=== PATIENT | female | born 1950 | race Native Hawaiian/Other Pacific Islander ===

== ENCOUNTER 2017-05-27 09:11 | Outpatient (CLI) | payer OTHER | END 2017-05-27 19:59 | disposition home or self-care (01) | LOC: RESP 09:11 → MAMMO 10:00 → RESP 19:59 | DX: Z12.31 Encounter for screening mammogram for malignant neoplasm of breast (principal); R60.0 Localized edema; Z13.820 Encounter for screening for osteoporosis | CPT/HCPCS: 93306 ==

== ENCOUNTER 2017-10-23 07:46 | Outpatient (CLI) | payer OTHER ==
[~2017-10-23] VITALS: Ht 30.5 cm; Wt 0.5 kg
== END 2017-10-23 19:39 | disposition home or self-care (01) ==
LOC: NM 07:46
DX: R07.89 Other chest pain (principal)
CPT/HCPCS: A9500; J2785

== ENCOUNTER 2018-04-07 14:01 | Emergency (ER) | payer OTHER ==
[~2018-04-07] VITALS: Ht 147.3 cm; Wt 127.0 kg
[2018-04-07] MEDS ORDERED: ASPIR-LOW81 MG PO (15:00)
[2018-04-07] MEDS ORDERED: CELEBREX200 MG PO (15:01)
[2018-04-07] MEDS ORDERED: FURO20TA67 PO (15:02)
[2018-04-07] MEDS ORDERED: PERCOCET1 TA3 PO (15:03)
[2018-04-07] MEDS ORDERED: KLOR-CON M2020 MEQ PO (15:04)
[2018-04-07] MEDS ORDERED: LEVO0.0218 PO (15:04)
[2018-04-07] MEDS ORDERED: ENDUR-ACIN500 MG PO (15:05)
[2018-04-07] MEDS ORDERED: LYRICA150 MG PO (15:05)
[2018-04-07] MEDS ORDERED: OMEPRAZOLE20 M1 PO (15:06)
[2018-04-07 15:15] LABS: POTASSIUM 4.2 mmol/L (3.6-5.2)
[2018-04-07 15:21] LABS: PLATELET COUNT 394 K/uL (152-353)
[2018-04-07 15:29] LABS: PARTIAL THROMBOPLASTIN TIME 24.9 SECONDS (24.5-33.6)
[2018-04-07 17:03] VITALS: BP 158/52; TEMP 98.1
== END 2018-04-07 17:03 | disposition home or self-care (01) ==
LOC: ED 14:01
PROVIDERS: Family Medicine
DX: L03.115 Cellulitis of right lower limb (principal); Z96.651 Presence of right artificial knee joint; M79.604 Pain in right leg
CPT/HCPCS: 80053; 85027; 85610; 85651; 85730; 99283

== ENCOUNTER 2018-04-12 12:55 | Emergency (ER) | payer OTHER ==
[~2018-04-12] VITALS: Ht 147.3 cm; Wt 127.0 kg
[~2018-04-12 12:55] MED LIST: ASPIR-LOW81 MG PO; CELEBREX200 MG PO; ENDUR-ACIN500 MG PO; FURO20TA67 PO; KLOR-CON M2020 MEQ PO; LEVO0.0218 PO; LYRICA150 MG PO; OMEPRAZOLE20 M1 PO; PERCOCET1 TA3 PO
[2018-04-12 13:58] LABS: PLATELET COUNT 285 K/uL (152-353)
[2018-04-12 14:09] LABS: POTASSIUM 4.2 mmol/L (3.6-5.2)
[2018-04-12 16:36] VITALS: BP 146/63; TEMP 98.2
== END 2018-04-12 17:00 | disposition home or self-care (01) ==
LOC: ED 12:55
PROVIDERS: Family Medicine
PROC: 0JQN0ZZ Repair Right Lower Leg Subcutaneous Tissue and Fascia, Open Approach (ICD-10-PCS; principal; 2018-04-12)
DX: T81.31XA Disruption of external operation (surgical) wound, not elsewhere classified, initial encounter (principal)
CPT/HCPCS: 80053; 85027; 96372; 99283; J7040

== ENCOUNTER 2018-04-28 12:06 | Outpatient (CLI) | payer OTHER ==
[~2018-04-28] VITALS: Ht 147.3 cm; Wt 127.9 kg
[2018-04-28 12:15] VITALS: BP 163/82; TEMP 97.7
== END 2018-04-28 12:53 | disposition home or self-care (01) ==
LOC: INF 12:06
DX: T84.53XA Infection and inflammatory reaction due to internal right knee prosthesis, initial encounter (principal)
CPT/HCPCS: 96365; 96375; J0696

== ENCOUNTER 2018-04-29 10:19 | Outpatient (CLI) | payer OTHER ==
[~2018-04-29] VITALS: Ht 147.3 cm; Wt 127.9 kg
[2018-04-29 10:40] VITALS: BP 147/49; TEMP 98
== END 2018-04-29 11:20 | disposition home or self-care (01) ==
LOC: INF 10:19
DX: T84.53XA Infection and inflammatory reaction due to internal right knee prosthesis, initial encounter (principal)
CPT/HCPCS: 96365; 96375; J0696

== ENCOUNTER 2018-04-30 09:30 | Outpatient (CLI) | payer OTHER ==
[~2018-04-30] VITALS: Ht 147.3 cm; Wt 127.9 kg
[2018-04-30 11:20] VITALS: BP 149/50; TEMP 98.1
== END 2018-04-30 12:50 | disposition home or self-care (01) ==
LOC: INF 09:30
DX: T84.53XA Infection and inflammatory reaction due to internal right knee prosthesis, initial encounter (principal)
CPT/HCPCS: 96365; 96375; 99211; J0696

== ENCOUNTER 2018-05-01 10:23 | Outpatient (CLI) | payer OTHER ==
[~2018-05-01] VITALS: Ht 147.3 cm; Wt 127.9 kg
[2018-05-01 11:05] VITALS: BP 139/51; TEMP 97.9
== END 2018-05-01 12:10 | disposition home or self-care (01) ==
LOC: INF 10:23
DX: T84.53XA Infection and inflammatory reaction due to internal right knee prosthesis, initial encounter (principal)
CPT/HCPCS: 96365; 96375; J0696

== ENCOUNTER 2018-05-02 10:57 | Outpatient (CLI) | payer OTHER ==
[~2018-05-02] VITALS: Ht 147.3 cm; Wt 127.9 kg
== END 2018-05-02 12:40 | disposition home or self-care (01) ==
LOC: INF 10:57
DX: T84.53XA Infection and inflammatory reaction due to internal right knee prosthesis, initial encounter (principal)
CPT/HCPCS: 96365; 96375; J0696; J1642

== ENCOUNTER 2018-05-03 12:57 | Outpatient (CLI) | payer OTHER | END 2018-05-03 14:00 | disposition home or self-care (01) | LOC: INF 12:57 | DX: T84.53XA Infection and inflammatory reaction due to internal right knee prosthesis, initial encounter (principal) | CPT/HCPCS: 96365; 96375; J0696; J1642 ==

== ENCOUNTER 2018-05-04 11:04 | Outpatient (CLI) | payer OTHER ==
[~2018-05-04] VITALS: Ht 147.3 cm; Wt 127.9 kg
[2018-05-04 11:10] VITALS: BP 131/45; TEMP 97.6
== END 2018-05-04 12:00 | disposition home or self-care (01) ==
LOC: INF 11:04
DX: T84.53XA Infection and inflammatory reaction due to internal right knee prosthesis, initial encounter (principal)
CPT/HCPCS: 96365; 96374; J0696

== ENCOUNTER 2018-05-05 10:55 | Outpatient (CLI) | payer OTHER ==
[~2018-05-05] VITALS: Ht 149.9 cm; Wt 127.9 kg
[2018-05-05 11:15] VITALS: BP 122/77; TEMP 98.1
== END 2018-05-05 12:04 | disposition home or self-care (01) ==
LOC: INF 10:55
DX: T84.53XA Infection and inflammatory reaction due to internal right knee prosthesis, initial encounter (principal)
CPT/HCPCS: 96365; 96375; J0696

== ENCOUNTER 2018-05-06 09:50 | Outpatient (CLI) | payer OTHER ==
[~2018-05-06] VITALS: Ht 147.3 cm; Wt 127.9 kg
[2018-05-06 10:50] VITALS: BP 131/58; TEMP 97.7
== END 2018-05-06 11:59 | disposition home or self-care (01) ==
LOC: INF 09:50
DX: T84.53XA Infection and inflammatory reaction due to internal right knee prosthesis, initial encounter (principal)
CPT/HCPCS: 96365; 96375; J0696

== ENCOUNTER 2018-05-07 07:57 | Outpatient (CLI) | payer OTHER ==
[~2018-05-07] VITALS: Ht 147.3 cm; Wt 127.9 kg
[2018-05-07 10:05] VITALS: BP 162/50; TEMP 98.2
== END 2018-05-07 11:22 | disposition home or self-care (01) ==
LOC: INF 07:57
DX: T84.53XA Infection and inflammatory reaction due to internal right knee prosthesis, initial encounter (principal)
CPT/HCPCS: 96365; 96375; J0696

== ENCOUNTER 2018-05-08 09:47 | Outpatient (CLI) | payer OTHER ==
[~2018-05-08] VITALS: Ht 147.3 cm; Wt 127.9 kg
[2018-05-08 11:08] VITALS: BP 144/64; TEMP 98.2
== END 2018-05-08 12:06 | disposition home or self-care (01) ==
LOC: INF 09:47
DX: T84.53XA Infection and inflammatory reaction due to internal right knee prosthesis, initial encounter (principal)
CPT/HCPCS: 96365; 96375; J0696

== ENCOUNTER 2018-05-09 11:24 | Outpatient (CLI) | payer OTHER | END 2018-05-09 12:15 | disposition home or self-care (01) | LOC: INF 11:24 | DX: T84.53XA Infection and inflammatory reaction due to internal right knee prosthesis, initial encounter (principal) | CPT/HCPCS: 96365; 96375; J0696 ==

== ENCOUNTER 2018-05-10 12:46 | Outpatient (CLI) | payer OTHER | END 2018-05-10 13:45 | disposition home or self-care (01) | LOC: INF 12:46 | DX: L08.9 Local infection of the skin and subcutaneous tissue, unspecified (principal) | CPT/HCPCS: 96365; 96375 ==

== ENCOUNTER 2018-06-30 12:05 | Outpatient (CLI) | payer OTHER | END 2018-06-30 19:24 | disposition home or self-care (01) | LOC: RAD 12:05 | DX: M13.851 Other specified arthritis, right hip (principal); M43.16 Spondylolisthesis, lumbar region ==

== ENCOUNTER 2018-09-01 09:23 | Day surgery (SDC) | payer OTHER ==
[~2018-09-01] VITALS: Ht 30.5 cm; Wt 0.5 kg
== END 2018-09-01 10:35 | disposition home or self-care (01) ==
LOC: OR 09:23
PROC: 3E0R33Z Introduction of Anti-inflammatory into Spinal Canal, Percutaneous Approach (ICD-10-PCS; principal; 2018-09-01)
PROC: B01BYZZ Fluoroscopy of Spinal Cord using Other Contrast (ICD-10-PCS; 2018-09-01)
DX: M51.16 Intervertebral disc disorders with radiculopathy, lumbar region (principal)
CPT/HCPCS: J1020

== ENCOUNTER 2018-09-29 12:13 | Day surgery (SDC) | payer OTHER | END 2018-09-29 15:15 | disposition home or self-care (01) | LOC: OR 12:13 | PROC: 3E0R33Z Introduction of Anti-inflammatory into Spinal Canal, Percutaneous Approach (ICD-10-PCS; principal; 2018-09-29) | PROC: B01BYZZ Fluoroscopy of Spinal Cord using Other Contrast (ICD-10-PCS; 2018-09-29) | DX: M51.16 Intervertebral disc disorders with radiculopathy, lumbar region (principal) | CPT/HCPCS: J1020 ==

== ENCOUNTER 2019-05-27 11:11 | Outpatient (CLI) | payer OTHER | END 2019-05-27 19:13 | disposition home or self-care (01) | LOC: RAD 11:11 | DX: J40 Bronchitis, not specified as acute or chronic (principal) ==

== ENCOUNTER 2019-08-04 07:57 | Outpatient (CLI) | payer OTHER ==
[2019-08-04 08:19] LABS: POTASSIUM 4.5 mmol/L (3.6-5.2)
== END 2019-08-04 19:43 | disposition home or self-care (01) ==
LOC: LABW 07:57
PROVIDERS: Internal Medicine Cardiovascular Disease
DX: Z79.899 Other long term (current) drug therapy (principal); R06.02 Shortness of breath
CPT/HCPCS: 36415; 80048; 83880

== ENCOUNTER 2019-08-15 11:10 | Inpatient (IN) | payer OTHER ==
[~2019-08-15] VITALS: Ht 148.6 cm; Wt 111.8 kg
[2019-08-15] VITALS (18 sets, daily range): BP systolic 103–141; BP diastolic 51–78; TEMP 98.4–98.8; Ht 148.6 cm; Wt 111.8 kg
[2019-08-15 11:33] LABS: PLATELET COUNT 207 K/uL (152-353)
[2019-08-15 11:44] LABS: POTASSIUM 4.4 mmol/L (3.6-5.2); SODIUM 143 mmol/L (136-145)
[2019-08-15 11:49] LABS: PARTIAL THROMBOPLASTIN TIME 29.4 SECONDS (24.5-33.6)
[2019-08-15] MEDS ORDERED: NEURONTIN800 MG PO (14:39)
[2019-08-15] MEDS ORDERED: K-TAB20 MEQ PO (14:41)
[2019-08-15] MEDS ORDERED: CELE200C2 PO (14:42)
[2019-08-15] MEDS ORDERED: FURO40TA93 PO (14:44)
[2019-08-16] VITALS (23 sets, daily range): BP systolic 105–168; BP diastolic 44–101; TEMP 98.6–99.5
[2019-08-16 06:01] LABS: PLATELET COUNT 186 K/uL (152-353)
[2019-08-16 06:13] LABS: POTASSIUM 4.7 mmol/L (3.6-5.2)
[2019-08-17] VITALS (23 sets, daily range): BP systolic 132–167; BP diastolic 71–92; TEMP 96.3–98.6
[2019-08-17 06:13] LABS: PLATELET COUNT 225 K/uL (152-353)
[2019-08-17 07:02] LABS: POTASSIUM 4.9 mmol/L (3.6-5.2)
[2019-08-18] VITALS (22 sets, daily range): BP systolic 115–180; BP diastolic 67–94; TEMP 98–99.1
[2019-08-18 05:43] LABS: PLATELET COUNT 220 K/uL (152-353)
[2019-08-18 05:49] LABS: POTASSIUM 4.4 mmol/L (3.6-5.2)
[2019-08-19] VITALS (20 sets, daily range): BP systolic 113–156; BP diastolic 57–88; TEMP 97.4–98.6
[2019-08-19 05:31] LABS: POTASSIUM 4.3 mmol/L (3.6-5.2)
[2019-08-19 06:32] LABS: PLATELET COUNT 177 K/uL (152-353)
[2019-08-20] VITALS (24 sets, daily range): BP systolic 106–142; BP diastolic 45–71; TEMP 97.6–98.6
[2019-08-21] VITALS (25 sets, daily range): BP systolic 122–154; BP diastolic 53–79; TEMP 97.8–99.3
[2019-08-21 06:04] LABS: PLATELET COUNT 103 K/uL (152-353)
[2019-08-21 06:16] LABS: POTASSIUM 4.5 mmol/L (3.6-5.2); SODIUM 140 mmol/L (136-145)
[2019-08-22] VITALS (24 sets, daily range): BP systolic 103–172; BP diastolic 45–90; TEMP 97.6–99
[2019-08-22 15:11] LABS: PLATELET COUNT 144 K/uL (152-353)
[2019-08-22 15:33] LABS: PARTIAL THROMBOPLASTIN TIME 26.8 SECONDS (24.5-33.6)
[2019-08-23] VITALS (21 sets, daily range): BP systolic 101–171; BP diastolic 44–78; TEMP 97.8–98.9
[2019-08-23 08:30] LABS: PLATELET COUNT 216 K/uL (152-353)
[2019-08-23 09:05] LABS: POTASSIUM 4.7 mmol/L (3.6-5.2)
[2019-08-24] VITALS (16 sets, daily range): BP systolic 120–170; BP diastolic 40–90; TEMP 98–98.6
[2019-08-24 07:54] LABS: POTASSIUM 4.8 mmol/L (3.6-5.2)
[2019-08-25] VITALS (17 sets, daily range): BP systolic 136–171; BP diastolic 54–92; TEMP 97.8–98.8
[2019-08-25 02:54] LABS: POTASSIUM 5.2 mmol/L (3.6-5.2)
[2019-08-25 09:49] LABS: PLATELET COUNT 251 K/uL (152-353)
[2019-08-26] VITALS (23 sets, daily range): BP systolic 115–197; BP diastolic 7–88; TEMP 97.7–98
[2019-08-26 05:37] LABS: POTASSIUM 5.4 mmol/L (3.6-5.2)
[2019-08-27] VITALS (23 sets, daily range): BP systolic 128–159; BP diastolic 68–85; TEMP 98.4–98.9
[2019-08-27 13:27] LABS: PLATELET COUNT 374 K/uL (152-353)
[2019-08-28] VITALS (22 sets, daily range): BP systolic 126–156; BP diastolic 50–85; TEMP 97.4–98.9
[2019-08-29] VITALS (11 sets, daily range): BP systolic 108–141; BP diastolic 60–75; TEMP 98.2–98.5
[2019-08-30] VITALS (24 sets, daily range): BP systolic 114–191; BP diastolic 52–85; TEMP 97.8–98.5
[2019-08-30 05:49] LABS: PLATELET COUNT 330 K/uL (152-353)
[2019-08-30 05:51] LABS: POTASSIUM 3.6 mmol/L (3.6-5.2)
[2019-08-31] VITALS (21 sets, daily range): BP systolic 108–162; BP diastolic 58–75; TEMP 97.8–98.9
[2019-09-01] VITALS (24 sets, daily range): BP systolic 105–158; BP diastolic 50–99; TEMP 98–98.9
[2019-09-01 05:33] LABS: PLATELET COUNT 303 K/uL (152-353)
[2019-09-01 05:43] LABS: POTASSIUM 3.4 mmol/L (3.6-5.2)
[2019-09-02] VITALS (16 sets, daily range): BP systolic 123–160; BP diastolic 54–96; TEMP 97.7–98.6
[2019-09-03 00:06] VITALS: BP 164/89; TEMP 98
[2019-09-03 03:58] VITALS: BP 169/79; TEMP 97.8
[2019-09-03 08:00] VITALS: TEMP 98.6
[2019-09-03 12:00] VITALS: BP 150/84; TEMP 97.9
[2019-09-03 16:00] VITALS: BP 169/85; TEMP 98
[2019-09-03 20:00] VITALS: BP 154/91; TEMP 97.7
[2019-09-04] VITALS: BP 130/80; TEMP 98.1
[2019-09-04 04:00] VITALS: BP 153/91; TEMP 98.4
[2019-09-04 08:00] VITALS: BP 138/86; TEMP 97.4
[2019-09-04 12:00] VITALS: BP 109/74; TEMP 98.2
[2019-09-04 16:00] VITALS: BP 128/77; TEMP 97.4
[2019-09-04 20:00] VITALS: BP 127/90; TEMP 97.6
[2019-09-05] VITALS: BP 145/83; TEMP 98.3
[2019-09-05 04:00] VITALS: BP 149/81; TEMP 97.2
[2019-09-05 08:00] VITALS: BP 148/67; TEMP 97.7
[2019-09-05 12:28] LABS: PLATELET COUNT 223 K/uL (152-353)
[2019-09-05 12:34] LABS: POTASSIUM 4.1 mmol/L (3.6-5.2)
[2019-09-05 16:00] VITALS: BP 146/67; TEMP 97.8
[2019-09-05 20:00] VITALS: BP 120/71; TEMP 97.9
[2019-09-06] VITALS (7 sets, daily range): BP systolic 108–138; BP diastolic 63–82; TEMP 97.8–98.8
[2019-09-06] MEDS ORDERED: BIOFREEZE EX (11:15)
[2019-09-07 03:46] VITALS: BP 112/66; TEMP 98
[2019-09-07 06:10] LABS: POTASSIUM 4.5 mmol/L (3.6-5.2)
[2019-09-07 06:19] LABS: PLATELET COUNT 192 K/uL (152-353)
[2019-09-07 08:00] VITALS: BP 117/66; TEMP 97.5
[2019-09-07 12:00] VITALS: BP 102/52; TEMP 98.3
[2019-09-07 16:00] VITALS: BP 167/98; TEMP 97.8
[2019-09-07 20:00] VITALS: BP 122/68; TEMP 98.3
[2019-09-08 00:17] VITALS: BP 127/70; TEMP 98.8
[2019-09-08 03:56] VITALS: BP 118/60; TEMP 98.14
[2019-09-08 06:32] LABS: PLATELET COUNT 176 K/uL (152-353)
[2019-09-08 06:44] LABS: POTASSIUM 4.1 mmol/L (3.6-5.2)
[2019-09-08 07:51] VITALS: BP 126/75; TEMP 98.2
[2019-09-08 12:00] VITALS: BP 137/74; TEMP 98.7
[2019-09-08] MEDS ORDERED: APIX1TAB PO (12:24)
[2019-09-08] MEDS ORDERED: ASPI81TA4 PO (12:25)
[2019-09-08] MEDS ORDERED: GUAI600T70 PO (12:25)
[2019-09-08] MEDS ORDERED: CARV6.25 PO (12:25)
[2019-09-08] MEDS ORDERED: LEVO0.0529 PO (12:26)
[2019-09-08] MEDS ORDERED: HYDR5TAB9 PO (12:26)
[2019-09-08] MEDS ORDERED: LORA0.5T17 PO (12:26)
[2019-09-08] MEDS ORDERED: IPRAAER INH (12:26)
== END 2019-09-08 14:39 | disposition home or self-care (01) | DRG 177 ==
LOC: ED 11:10 → ICU 12:20 → MED/SURG 09-02 18:07
PROVIDERS: Family Medicine; Internal Medicine; Internal Medicine Endocrinology, Diabetes & Metabolism; ADMIT Hospitalist
DX: U07.1 COVID-19 (principal); J96.02 Acute respiratory failure with hypercapnia; J96.01 Acute respiratory failure with hypoxia; J18.8 Other pneumonia, unspecified organism; E66.2 Morbid (severe) obesity with alveolar hypoventilation; N39.0 Urinary tract infection, site not specified; I50.30 Unspecified diastolic (congestive) heart failure; J44.9 Chronic obstructive pulmonary disease, unspecified; B96.20 Unspecified Escherichia coli [E. coli] as the cause of diseases classified elsewhere; E11.42 Type 2 diabetes mellitus with diabetic polyneuropathy; E03.8 Other specified hypothyroidism; R23.0 Cyanosis; I11.0 Hypertensive heart disease with heart failure
CPT/HCPCS: 36415; 36600; 51702; 80048; 80053; 81000; 82550; 82805; 83605; 83880; 84443; 84484; 85007; 85027; 85379; 85610; 85730; 87040; 87070; 87077; 87086; 87088; 87186; 87205; 87502; 87635; 87651; 93005; 94640; 94664; 94667; 94668; 94760; 96365; 96366; 96375; 99285; G2023; J0456; J0696; J1100; J1644; J1650; J1815; J1940; J1956; J2270; J2405; J2930; J3490; U00003

== ENCOUNTER 2019-09-29 14:33 | Emergency (ER) | payer OTHER ==
[~2019-09-29] VITALS: Ht 148.6 cm; Wt 111.6 kg
[~2019-09-29 14:33] MED LIST changes: +APIX1TAB PO; +ASPI81TA4 PO; +BIOFREEZE EX; +CARV6.25 PO; +CELE200C2 PO; +FURO40TA93 PO; +GUAI600T70 PO; +HYDR5TAB9 PO; +IPRAAER INH; +K-TAB20 MEQ PO; +LEVO0.0529 PO; +LORA0.5T17 PO; +NEURONTIN800 MG PO
[2019-09-29 14:40] VITALS: TEMP 98.6
[2019-09-29 15:06] LABS: PLATELET COUNT 305 K/uL (152-353)
[2019-09-29 15:10] LABS: POTASSIUM 4.4 mmol/L (3.6-5.2)
[2019-09-30 02:00] VITALS: BP 136/74
== END 2019-09-30 02:00 | disposition short-term general hospital (02) ==
LOC: ED 14:33
PROVIDERS: Emergency Medicine
PROC: 0W9900Z Drainage of Right Pleural Cavity with Drainage Device, Open Approach (ICD-10-PCS; principal; 2019-09-29)
PROC: 0T9B70Z Drainage of Bladder with Drainage Device, Via Natural or Artificial Opening (ICD-10-PCS; 2019-09-29)
DX: U07.1 COVID-19 (principal); J93.83 Other pneumothorax; R06.03 Acute respiratory distress
CPT/HCPCS: 51702; 80053; 83605; 83880; 85027; 85379; 87040; 87635; 93005; 96360; 96375; 96376; 99285; J2175; U0003

== ENCOUNTER 2019-10-19 13:14 | Inpatient (IN) | payer OTHER ==
[~2019-10-19] VITALS: Ht 149.9 cm; Wt 110.9 kg
[2019-10-19 18:13] VITALS: BP 107/59; TEMP 98; Ht 149.9 cm; Wt 110.9 kg
[2019-10-19] MEDS ORDERED: CARV6.25 PO (19:39)
[2019-10-19] MEDS ORDERED: NITRO BID 2% TOP (19:41)
[2019-10-19] MEDS ORDERED: HYDROCODONE BIT1 TA1 PO (19:43)
[2019-10-19] MEDS ORDERED: NYST100010 EX (19:44)
[2019-10-19] MEDS ORDERED: NEURONTIN 100M100 MG PO (19:46)
[2019-10-19] MEDS ORDERED: HYDR5TAB9 PO (19:48)
[2019-10-19] MEDS ORDERED: ASA LOW DOSE81 MG PO (19:50)
[2019-10-19] MEDS ORDERED: TIROSINT50 MCG PO (19:53)
[2019-10-19 20:00] VITALS: BP 126/58; TEMP 98.7
[2019-10-20 06:01] LABS: PLATELET COUNT 292 K/uL (152-353)
[2019-10-20 06:25] LABS: POTASSIUM 3.7 mmol/L (3.6-5.2)
[2019-10-20 08:00] VITALS: BP 145/66; TEMP 98
[2019-10-20 20:00] VITALS: BP 122/55; TEMP 98.2
[2019-10-21 08:00] VITALS: BP 132/65; TEMP 98.1
[2019-10-21 19:51] VITALS: BP 124/50; TEMP 98.1
[2019-10-22 08:00] VITALS: BP 134/56; TEMP 97.9
[2019-10-22 20:00] VITALS: BP 121/44; TEMP 98.1
[2019-10-23 19:58] VITALS: BP 126/56; TEMP 98
[2019-10-24 20:00] VITALS: BP 116/63; TEMP 98.1
[2019-10-25 08:00] VITALS: BP 121/68; TEMP 98.1
[2019-10-25 21:32] VITALS: BP 131/102; TEMP 98.2
[2019-10-26 08:00] VITALS: BP 132/71; TEMP 97.6
[2019-10-26 21:33] VITALS: BP 132/67; TEMP 97.9
[2019-10-27 19:52] VITALS: BP 130/42; TEMP 98.6
[2019-10-28 08:00] VITALS: BP 133/53; TEMP 98.1
[2019-10-28 19:46] VITALS: BP 113/46; TEMP 98.3
[2019-10-29 08:00] VITALS: BP 130/54; TEMP 98
[2019-10-29 20:30] VITALS: BP 141/65; TEMP 97.6
[2019-10-30 20:00] VITALS: BP 126/58; TEMP 98.6
[2019-10-31 19:55] VITALS: BP 124/57; TEMP 98.4
[2019-11-01 08:00] VITALS: BP 128/60; TEMP 98.6
[2019-11-01 20:00] VITALS: BP 102/49; TEMP 98.5
[2019-11-02 08:00] VITALS: BP 127/55; TEMP 98.1
[2019-11-02 19:39] VITALS: BP 121/51; TEMP 98.4
[2019-11-03 08:00] VITALS: BP 163/78; TEMP 98.2
[2019-11-03 20:26] VITALS: BP 148/75; TEMP 98.2
[2019-11-04 09:12] VITALS: BP 144/81; TEMP 97.6
[2019-11-04 20:24] VITALS: BP 135/67; TEMP 98.3
[2019-11-05 08:00] VITALS: BP 142/63; TEMP 98
== END 2019-11-05 12:55 | disposition home or self-care (01) | DRG 948 ==
LOC: MED/SURG 13:14
PROVIDERS: Internal Medicine Endocrinology, Diabetes & Metabolism; ADMIT Family Medicine
DX: R53.1 Weakness (principal); Z68.42 Body mass index [BMI] 45.0-49.9, adult; R62.7 Adult failure to thrive; Z86.19 Personal history of other infectious and parasitic diseases; E03.8 Other specified hypothyroidism; E66.01 Morbid (severe) obesity due to excess calories; Z71.3 Dietary counseling and surveillance; F41.8 Other specified anxiety disorders; B36.8 Other specified superficial mycoses; G62.89 Other specified polyneuropathies; I11.0 Hypertensive heart disease with heart failure; I50.9 Heart failure, unspecified; K21.9 Gastro-esophageal reflux disease without esophagitis; I87.2 Venous insufficiency (chronic) (peripheral)
CPT/HCPCS: 36415; 80053; 85027; 87081; 94760

== ENCOUNTER 2019-12-17 15:31 | Outpatient (CLI) | payer OTHER ==
[~2019-12-17 15:31] MED LIST changes: +ASA LOW DOSE81 MG PO; +HYDROCODONE BIT1 TA1 PO; +NEURONTIN 100M100 MG PO; +NITRO BID 2% TOP; +NYST100010 EX; +TIROSINT50 MCG PO
== END 2019-12-17 19:13 | disposition home or self-care (01) ==
LOC: CT 15:31
DX: D68.59 Other primary thrombophilia (principal)
CPT/HCPCS: 36415; 82565; 84520; Q9963

== ENCOUNTER 2020-04-18 09:52 | Outpatient (CLI) | payer OTHER | END 2020-04-18 19:17 | disposition home or self-care (01) | LOC: RAD 09:52 | PROVIDERS: ATTEND Internal Medicine | DX: R05 Cough (principal) ==